=== PATIENT | male | born 1965 | race Caucasian/White ===

== ENCOUNTER 2021-07-25 14:54 | Emergency (ER) | payer BC ==
[2021-07-25 15:19] VITALS: BP 139/81; PULSE 94; RESP 16; TEMP 98
--- NOTE | 2021-07-25 15:52 | XR ---
EXAMINATION TYPE: XR forearm LT DATE OF EXAM: 07/25/2021 CLINICAL HISTORY: pain, injury. TECHNIQUE: Frontal and lateral images of the left forearm are obtained. COMPARISON: None FINDINGS: There is no acute fracture/dislocation evident. The joint spaces appear within normal cristobal its. Normal osseous mineralization. The overlying soft tissue appears unremarkable. IMPRESSION: No acute fracture or dislocation in the left forearm.
--- NOTE | 2021-07-25 15:57 | ED ---
Upper Extremity HPI - General Chief Complaint: Extremity Injury, Upper Stated Complaint: Arm Injury Time Seen by Provider: 07/25/21 15:34 Source: patient, RN notes reviewed Mode of arrival: ambulatory Limitations: no limitations - History of Present Illness Initial Comments: This a 55-year-old male presents emergency Department R arm pain. Patient state s that he was turning a branch off his roof struck a tree. Patient states that he came down striking his left arm. Patient states sore, swollen no paresthesias no discoloration or complaints. - Related Data Allergies Allergy/AdvReac Type Severity Reaction Status Date / Time No Known Allergies Allergy Verified 07/25/21 15:19 Review of Systems ROS Statement: Those systems with pertinent positive or pertinent negative responses have been documented in the HPI. ROS Other: All systems not noted in ROS Statement are negative. Past Medical History Past Medical History: No Reported History Past Surgical History: Hernia Repair Past Psychological History: No Psychological Hx Reported Smoking Status: Current some day smoker Past Alcohol Use History: Occasional Past Drug Use History: None Reported General Exam Limitations: no limitations General appearance: alert, in no apparent distress Head exam: Present: atraumatic, normocephalic, normal inspection Respiratory exam: Present: normal lung sounds bilaterally. Absent: respiratory distress, wheezes, rales, rhonchi, stridor Cardiovascular Exam: Present: regular rate, normal rhythm, normal heart sounds. Absent: systolic murmur, diastolic murmur, rubs, gallop, clicks Extremities exam: Present: other (Left arm there is noted swelling midforearm, neurovascular intact Refill less than 2 seconds full range of motion) Course Vital Signs 07/25/21 15:16 Temperature 98 F Pulse Rate 94 Respiratory 16 Rate Blood Pressure 139/81 O2 Sat by Pulse 96 Oximetry Medical Decision Making - Medical Decision Making Patient has a left arm contusion x-rays are negative. Disposition Clinical Impression: Contusion of left forearm Disposition: HOME SELF-CARE Condition: Stable Instructions (If sedation given, give patient instructions): Contusion in Adults (ED) Additional Instructions: Please return to the Emergency Department if symptoms worsen or any other concerns. Is patient prescribed a controlled substance at d/c from ED?: No Referrals: None,Stated [Primary Care Provider] - 1-2 days Time of Disposition: 15:57
== END 2021-07-25 16:13 | disposition home or self-care (01) ==
LOC: EC 14:54
DX: S50.12XA Contusion of left forearm, initial encounter (principal); F17.200 Nicotine dependence, unspecified, uncomplicated; W22.8XXA Striking against or struck by other objects, initial encounter
CPT/HCPCS: 99283